=== PATIENT | male | born 1960 | race Caucasian/White ===

== ENCOUNTER 2025-09-17 10:50 | Outpatient (AMB) | payer MEDICARE, SELFPAY ==
--- NOTE | 2025-09-17 11:00 | MHC.OFFVIS ---
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 The patient did undergo cervical spine surgery by Dr. Joyner approximately 5 years ago. He reports minimal discomfort in his neck. The patient was recently seen by [facility] for treatment of his chronic low back pain. He got minimal relief from the treatments. He has failed the last 6 weeks of conservative treatment which has included Tylenol, physical therapy exercises and a home exercise program. He is not able to take anti-inflammatory medicines because he is on Eliquis. The patient states that he has fallen several times because of weakness in both of his legs. He describes his knee pains as achy in nature. He did undergo right knee arthroscopic surgery approximately 20 years ago. Medication List - Last Reconciled 09/17/25 by Salomón Morales MD amlodipine 10 mg PO DAILY apixaban (Eliquis) 5 mg PO BID blood sugar diagnostic (FreeStyle Lite Strips) As directed blood-glucose meter (FreeStyle Lite Meter kit) As directed lancets (FreeStyle Lancets) As directed metformin 500 mg PO BID metoprolol succinate ER 50 mg PO DAILY metronidazole 0.75% topical DAILY PFSH Social History (Updated 09/17/25 @ 11:17 by JUAN Torres) Alcohol intake: current Patient Tobacco Use Status: Former Tobacco user Physical Exam Vital Signs: BMI result Body Mass Index 28.7 Const Other: Well-nourished well-developed very friendly male awake alert and oriented x3 in no acute distress Back/Spine/Pelvis Other: Low back examination shows bilateral paraspinal muscle tenderness, positive straight leg raise test bilaterally at 70 degrees, 4/5 strength with testing of his bilateral hip flexors and knee extensors Extrem Other: Bilateral knee examination shows minimal effusions, mild crepitus with range of motion, tenderness along his medial joint lines, positive Ernesto's test, no instability Results Reviewed Results Reviewed: X-rays of the patient's bilateral knee show mild to moderate diffuse joint space narrowing, no acute bony abnormalities Assessment & Plan Assessment & Plan (1) Low back pain radiating to both legs: Code(s): M54.50 - Low back pain, unspecified; M79.604 - Pain in right leg; M79.605 - Pain in left leg Category: Medical Plan Mr. Figueroa presents with progressively worsening low back pain which radiates into both of his legs as well as associated bilateral leg weakness possibly due to lumbar stenosis or a disc herniation. Thus, I will send the patient for an MRI of his lumbar spine for further evaluation. I will contact him by phone once the MRI results are available. He will call me prior to that time should his symptoms worsen in any way. The patient also has bilateral knee pains due to early degenerative joint disease as well as possible medial meniscus tearing. At this point the patient's knee symptoms are tolerable to him. We will hold off on a cortisone injection. Feel free to call me at any time should questions regarding his orthopedic management arise. I spent 21 minutes in reviewing the patient's records and imaging studies, seeing the patient and documenting in the medical record. Orders: Orders XR Knee Ford 3V Today M25.561 - Pain in right knee, M25.562 - Pain in left knee MR lumbar spine wo con 09/18/25 M54.50 - Low back pain, unspecified, M79.604 - Pain in right leg, M79.605 - Pain in left leg Coding Level of Care Code Est Pt Level 3 (78938) Complex EM visit Add On G2211 Diagnoses Low back pain radiating to both legs M54.50; M79.604; M79.605
[2025-09-17 11:18] VITALS: BMI 28.7
--- OUTSIDE RECORDS SUMMARY | 2025-09-17 14:05 | XMS_ITS | Clinical Summary ---
Author Organization [facility] Address [address] [place] [address] Care Team Providers Care Global Commodity Manager Name Role Phone Corwin Grijalva Primary Care Provider [phone] Surgical History Surgery Date Site/Laterality Comments HERNIA REPAIR PROCEDURE:HERNIA REPAIR KNEE SURGERY PROCEDURE:KNEE SURGERY ANKLE FRACTURE SURGERY PROCEDURE:ANKLE FRACTURE SURGERY CARDIAC SURGERY PROCEDURE:CARDIAC SURGERY BACK SURGERY PROCEDURE:BACK SURGERY Medical History Medical History Date Comments Hypertension DX:Hypertension Blood clotting tendency (CMS/HCC V24) DX:Blood clotting tendency (HCC) GERD (gastroesophageal reflux disease) DX:GERD (gastroesophageal reflux disease) Family History Medical History Relation Name Comments Diabetes Brother Hypertension Brother Heart disease Father Cancer Sister Relation Name Status Comments Brother Father Sister Social History Tobacco Use Types Packs/Day Years Used Date Smoking Tobacco: Former Smokeless Tobacco: Never Alcohol Use Standard Drinks/Week Comments Yes 0 (1 standard drink = 0.6 oz pur e alcohol) Sex and Gender Information Value Date Recorded Sex Assigned at Not on file Legal Sex Male 11:40 AM EST Gender Identity Not on file Sexual Orientation Not on file Obstetrics History Last Filed Vital Signs Vital Sign Reading Time Taken Comments Blood Pressure - - Pulse - - Temperature - - Respiratory Rate - - Oxygen Saturation - - Inhaled Oxygen Concentration - - Weight 96.2 kg (212 lb) 06/30/2022 8:04 AM EDT Height 182.9 cm (6') 06/30/2022 8:04 AM EDT Body Mass Index 28.75 06/30/2022 8:04 AM EDT Plan of Treatment Health Maintenance Due Date Last Done Comments DTaP,Tdap,and Td Vaccines (1 - Tdap) 1978 Pneumococcal Vaccine: 50+ Ye ars (1 of 1 - PCV) 2009 Zoster Vaccines (1 of 2) 2009 Depression Screening 11/27/2024 COVID-19 Vaccine (2023-2 5 season) 2025 Influenza Vaccine (#1) 2025 RSV Immunization Adult Patie nts (1 - 1-dose 75+ series) 2034 HIB Vaccines Aged Out No longer eligi ble based on patient's age to complete this topic HPV Vaccines Aged Out No longer eligi ble based on patient's age to complete this topic Hepatitis A Vaccines Aged Out No long er eligible based on patient's age to complete this topic Hepatitis B Vaccines Aged Out No long er eligible based on patient's age to complete this topic IPV Vaccines Aged Out No longer eligi ble based on patient's age to complete this topic MMR Vaccines Aged Out No longer eligi ble based on patient's age to complete this topic Meningococcal ACWY Vaccine Aged Out N o longer eligible based on patient's age to complete this topic Meningococcal B Vaccine Aged Out No l onger eligible based on patient's age to complete this topic RSV Immunization Patients Un cliff 20 months Aged Out No longer eligible b ased on patient's age to complete this topic Varicella Vaccines Aged Out No longer eligible based on patient's age to complete this topic Care Teams Global Commodity Manager Relationship Specialty Start Date End Date Corwin Grijalva DO [address] [place] [address] PCP - General Family Medicine 06/22/22
--- OUTSIDE RECORDS SUMMARY | 2025-09-17 14:05 | XMS_ITS | Clinical Summary ---
Author Organization [facility] Address [address] [place] [id number] Care Team Providers Care Soft Shoe Dancer Name Role Phone Corwin Grijalva DO Primary Care Provider [phone] Allergies Active Allergy Reactions Criticality Noted Date Comments Bi Inhibitors 06/30/2022 Dicyclomine 06/30/2022 Morphine Other (See Comments) 12/10/2018 Moxifloxacin Other (See Comments) 12/10/2018 Medications Medication Sig Dispensed Refills Start Date End Date Status amLODIPine (NORVASC) tablet 10 mg 0 09/05/2018 Active Blood Glucose Calibration (OT ULTRA/FASTTK CNTRL SOLN) SOLN 0 07/11/2018 Active ONE TOUCH ULTRA TEST test strip 0 08/25/2018 Active metoprolol succinate (TOPROL-XL) 24 hr tablet 50 mg 0 09/05/2018 Active Active Problems Problem Noted Date Diagnosed Date Foot drop, left 09/18/2018 Waddling gait 09/18/2018 Muscle atrophy of lower extremity 09/18/2018 Back pain of lumbar region with sciatica 018 Family History Medical History Relation Name Comments [...] Recorded Sex Assigned at Not on file Gender Identity Not on file Sexual Orientation Not on file Job Start Date Occupation Industry Not on file Not on file Not on file Last Filed Vital Signs Vital Sign Reading [...] Health Maintenance Due Date Last Done Comments Hepatitis C Screening 1959 COVID-19 Vaccine (#1) 01/25/1960 Depression Screening 1971 BMI Counseling 1977 Preventative Health Evaluation 1977 DTap / Tdap / Td (1 - Tdap) 1978 Colon Cancer Screening (Colonoscopy) 2004 Shingrix-Zoster Vaccine (1 o f 2) 2009 Fall Risk Assessment 2024 Pneumococcal Vaccine (1 of 1 - PCV) 2024 Influenza Vaccine (#1) 2025 8, 11/15/2017 RSV Adult > 60+ Yrs or (1 - 1-dose 75+ series) 2034 Hepatitis B Vaccines Aged Out No long er eligible based on patient's age to complete this topic RSV Ped < 20 months Aged Out No longe r eligible based on patient's age to complete this topic Advance Directives For more information, please contact: [phone] Documents on File Type Date Recorded 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
--- OUTSIDE RECORDS SUMMARY | 2025-09-17 14:05 | XMS_ITS | Clinical Summary ---
Author Organization [facility] Address [address] [place] [id number] Phone Care Team Providers Care Rn Hematology Name Role Phone Unknown, Unknown Primary Care Provider Luz mariano Allergies Active Allergy Reactions Criticality Noted Date Comments Moxifloxacin 12/10/2018 Morphine 12/10/2018 Medications naproxen sodium (ALEVE) 220 MG tablet Take 220 mg by mouth daily. Active amLODIPine (NORVASC) 10 MG tablet Take 10 mg by mouth daily. Active aspirin 81 MG EC tablet Take 81 mg by mouth daily. Active metoprolol tartrate (LOPRESSOR) 50 MG tablet Take 50 mg by mouth daily. Active Social History Tobacco Use Types Packs/Day Years Used Date Smoking Tobacco: Never Smokeless Tobacco: Never Education Answer Date Recorded Are you interested in more education? Not on theo e 03/24/2023 Are you concerned about learning? Not on file 03/24/2023 No 03/24/2023 No 03/24/2023 Digital Access Answer Date Recorded No 04/22/2023 No 04/22/2023 No 04/22/2023 Reliable internet access at home? Not on file 04/22/2023 Device with a working camera? Not on file Sex and Gender Information Value Date Recorded Sex Assigned at Not on file Legal Sex Male 9:32 AM EST Gender Identity Not on file Sexual Orientation Not on file Last Filed Vital Signs Vital Sign Reading Time Taken Comments Blood Pressure 124/62 12/10/2018 10:12 AM EST Pulse 65 12/10/2018 10:12 AM EST Temperature 36.7 C (98.1 F) 12/10/2018 10:12 AM EST Respiratory Rate - - Oxygen Saturation 98% 12/10/2018 10:12 AM EST Inhaled Oxygen Concentration - - Weight 96.2 kg (212 lb) 12/10/2018 10:12 AM EST Height 182.9 cm (6') 12/10/2018 10:12 AM EST Body Mass Index 28.75 12/10/2018 10:12 AM EST Plan of Treatment Health Maintenance Due Date Last Done Comments Adult Td,Tdap Booster 1959 LIPID PANEL 1959 DEPRESSION SCREENING 1971 HEPATITIS C SCREENING 1977 COLOGUARD 2004 COLONOSCOPY 2004 COLORECTAL CANCER SCREENING 2004 FIT TEST 2004 FOBT 2004 SIGMOIDOSCOPY 2004 VIRTUAL COLONOSCOPY 2004 PNEUMOCOCCAL VACCINES (50+ y ears) (1 of 1 - PCV) 2009 ZOSTER VACCINES (1 of 2) 2009 INFLUENZA VACCINE (#1) 2025 11/15/2017 COVID-19 VACCINE (1 - 2024-2 6 season) 2025 RSV VACCINE (1 - 1-dose 75+ series) 2034 SMOKING STATUS SCREENING (On ce After 26 Yrs) Completed 12/10/2018 HEPATITIS A VACCINES Aged Out No long er eligible based on patient's age to complete this topic HIB VACCINES Aged Out No longer eligi ble based on patient's age to complete this topic MENINGOCOCCAL VACCINES (ACWY) Aged Out No longer eligible based on patient's age to complete this topic MENINGOCOCCAL VACCINES (B) Aged Out N o longer eligible based on patient's age to complete this topic Medical Devices Not on file [facility] [place] [address] [place] [address] HMO POS [place]MO [place] [address] [place] [address] HMO POS HMO POS HMO POS HMO POS [facility] [place]MO [place] [address] [place] [address] HMO POS Care Teams Rn Hematology Relationship Specialty Start Date End Date Unknown, Unknown, PCP - General 11/26/19 Additional Source Comments The information contained in this document represents components of the legal health record. It is not the complete legal health record.[facility]
--- OUTSIDE RECORDS SUMMARY | 2025-09-17 14:06 | XMS_ITS | Data Portability ---
Author Organization [facility], PAIN OFFICE Address [address] [address] Care Team Providers Care Building Engineer Name Role Phone ERKI MEJIA Primary Care Provider Assessment Encounter Date Assessment Date Assessment LastModified by Organization Details LastModified Time 11/04/2021 11/04/2021 Serafin Figueroa is a 61 year old man with right sided low back pain which is worse for the past 5 years. On exam he has positive facet loading with tenderness in L4-5 and L5-S1 facet region in the right lumbar region. X-ray Lumbar spine shows arthritic changes in the facet at L4-5 and L5-S1 levels. MRI Lumbar spine shows Lower lumbar spine degenerative disease with stenosis and underlying L5 spondylolysis. CT Lumbar spine shows bilateral pars defect at L5-S1 level without spondylolisthesis . Currently his back pain is his worse pain. Trial of Right Lumbar facet radio frequency ablation at L4-5 and L5-S1 levels under fluoroscopic guidance was recommended. The risks and benefits of the procedure were discussed in detail. He wishes to proceed. An appointment will be booked for the same . He needs a route driver salesperson on the day of the procedure. He is going to see Dr. Lemon, a neurosurgeon at [facility] . I will forward his MRI. I have advised him to avoid lifting heavy weights. [email or web address] Not available 11/04/2021 10:51:52 02/22/2022 02/22/2022 Serafin Figueroa is a 61 year old man with right sided low back pain which is worse for the past 5 years. On exam he has positive facet loading with tenderness in L4-5 and L5-S1 facet region in the right lumbar region. X-ray Lumbar spine shows arthritic changes in the facet at L4-5 and L5-S1 levels. MRI Lumbar spine shows Lower lumbar spine degenerative disease with stenosis and underlying L5 spondylolysis. CT Lumbar spine shows bilateral pars defect at L5-S1 level without spondylolisthesis . Currently his back pain is his worse pain. He is here for a Right Lumbar radiofrequency ablation of L4-5 and L5-S1 facet levels under fluoroscopic guidance . The risks and benefits of the procedure were discussed in detail. He wishes to proceed. He needs to follow up in four to six weeks. [email or web address] Not available 02/23/2022 09:09:08 03/31/2022 03/31/2022 Serafin Figueroa is a 61 year old man with right sided low back pain which is worse for the past 5 years. On exam he has positive facet loading with tenderness in L4-5 and L5-S1 facet region in the right lumbar region. X-ray Lumbar spine shows arthritic changes in the facet at L4-5 and L5-S1 levels. MRI Lumbar spine shows Lower lumbar spine degenerative disease with stenosis and underlying L5 spondylolysis. CT Lumbar spine shows bilateral pars defect at L5-S1 level without spondylolisthesis . Currently his back pain is his worse pain. He is here for a follow up after a Right Lumbar radiofrequency ablation of L4-5 and L5-S1 facet levels under fluoroscopic guidance . He reports good ongoing pain benefit. He can follow up as needed. [email or web address] Not available 03/31/2022 16:06:36 01/23/2023 01/23/2023 Serafin Figueroa is a 62 year old man with right sided low back pain which is worse for the past 5 years. On exam he has positive facet loading with tenderness in L4-5 and L5-S1 facet region in the right lumbar region. X-ray Lumbar spine shows arthritic changes in the facet at L4-5 and L5-S1 levels. MRI Lumbar spine shows Lower lumbar spine degenerative disease with stenosis and underlying L5 spondylolysis. CT Lumbar spine shows bilateral pars defect at L5-S1 level without spondylolisthesis . Currently his back pain is his worse pain. Repeat Right Lumbar facet joint steroid injection under fluoroscopic guidance was recommended. The risks and benefits of the procedure were discussed in detail. He wishes to proceed. An appointment will be booked for the same . He needs a route driver salesperson on the day of the procedure. He is on eliinstruMagicis. I have left a message for his PCP that he needs to stop eliquis three prior to the injection. If he can stop for the procedure, the PCP will fax an ok. [email or web address] Not available 01/23/2023 16:24:32 08/10/2023 08/10/2023 Serafin Figueroa is a 63 year old man with right sided low back pain which is worse for the past 5 years. On exam he has positive facet loading with tenderness in L4-5 and L5-S1 facet region in the right lumbar region. X-ray Lumbar spine shows arthritic changes in the facet at L4-5 and L5-S1 levels. MRI Lumbar spine shows Lower lumbar spine degenerative disease with stenosis and underlying L5 spondylolysis. CT Lumbar spine shows bilateral pars defect at L5-S1 level without spondylolisthesis . Currently his back pain is his worse pain. He is here for a Right Lumbar facet joint (pars ) steroid injections under fluoroscopic guidance . The risks and benefits of the procedure were discussed in detail. He wishes to proceed. He needs to follow up in four weeks. [email or web address] Not available 08/10/2023 16:12:29 Plan of Treatment Reminders Order Date Submit Date Provider Last Modified By Organization Details Last Modified Time Details Appointments None recorded. Lab None recorded. Referral neurologica l surgeon referral 2020 021 ZACHARY Lemon MD, [address] [place] [address] , [place] [address], [place], [address], 08:33:59 Procedures None recorded. Surgeries None recorded. Imaging None recorded. Medication Orders None recorded. Patient TargetsNo targets recorded. Patient Instructions Encounter Date Encounter Id Patient Instructions Last Modified By Organization Details Last Modified Time 11/04/2021 [id number] He was advised against bed rest lasting longer than four days and to continue activities as tolerated. [email or web address] Not available 11/04/2021 10:23:10 02/22/2022 [id number] He was advised against bed rest lasting longer than four days and to continue activities as tolerated. [email or web address] Not available 02/23/2022 09:08:11 03/31/2022 [id number] He was advised against bed rest lasting longer than four days and to continue activities as tolerated. [email or web address] Not available 03/31/2022 15:35:39 01/23/2023 [id number] He was advised against bed rest lasting longer than four days and to continue activities as tolerated. [email or web address] Not available 01/23/2023 16:19:49 08/10/2023 [id number] He was advised against bed rest lasting longer than four days and to continue activities as tolerated. [email or web address] Not available 08/10/2023 16:10:47 Reason for Referral Neurological Surgeon Referra l for Lumbosacral spondylosis Referring Physician: Maddie Deluna, Pain Management, Encounter Date: 11/04/2021 Problems Name Problem SNOMED Code Status Onset Date Resolution Date Notes Provider Name and Address Organization Details Recorded Time Lumbosacral spondylosis 358957625 Active Maddie lazcano MD [address] [facility] , [address], [place], [address], [place] [facility] 9 10:15:23 Degeneration of lumbar intervertebral disc 45922619 Active Maddie lazcano MD [address] [facility] , [address], [place], [address], [place] [facility] 9 15:33:41 Spinal stenosis of lumbar region 78850662 Active Maddie lazcano MD [address] , [address], [place], [address], [place] [facility] 9 15:33:51 Problem Notes None recorded. Procedures Surgical History Date Name Laterality Status Provider Name and Address Organization Details Recorded Time 08/10/20 23 Fluoroscopic Guided Lumbar Facet Steroid Injections of levels completed Maddie Deluna MD [address] , [address], [place], [address], [place] [facility] 08/10/2023 16:11:59 02/23/20 22 Radiofrequency of Lumbar/Sacral medial branches supplying the facets under fluoroscopic guidance completed Maddie Deluna MD [address] , [address], [place], [address], [place] [facility] 02/23/2022 09:07:25 09/22/20 21 Fluoroscopic Guided Lumbar Facet Steroid Injections of levels completed Maddie Deluna MD [address] , [address], [place], [address], [place] [facility] 09/23/2021 09:04:52 06/23/20 21 Fluoroscopic Guided Lumbar Facet Steroid Injections of levels completed Maddie Deluna MD [address] , [address], [place], [address], [place] [facility] 06/23/2021 10:03:14 07/14/20 20 Fluoroscopic Guided Lumbar Facet Steroid Injections of levels completed Maddie Deluna MD [address] , [address], [place], [address], [place] [facility] 07/14/2020 09:56:19 01/21/20 20 Fluoroscopic Guided Lumbar Facet Steroid Injections of levels completed Maddie Deluna MD [address] [facility] , [address], [place], [address], [place] [facility] 01/21/2020 13:38:36 07/31/20 19 Fluoroscopic Guided Lumbar Facet Steroid Injections of levels completed Maddie Deluna MD [address] [facility] , [address], [place], [address], [place] [facility] 07/31/2019 11:28:48 01/07/20 19 osteotomy and discectomy of cervical spine by anterior approach completed Maddie Deluna MD [address] [facility] , [address], [place], [address], [place] [facility] 07/19/2019 10:18:26 repair of intestine completed Maddie Deluna MD [address] [facility] , [address], [place], [address], [place] [facility] 07/19/2019 10:21:24 Imaging Results None recorded. Procedure Notes None recorded. Medical Equipment None Reported. Allergies Allergen ID Allergen Name Allergen Category Reaction Reaction Severity Criticality Documentation Date Start Date Code Code System Note Provider Name and Address Organization Details Recorded Time 16334 Avelox medicatio n respirato ry distress Not available Not available 07/19/2019 86344 6 RxNorm Maddie lazcano MD [address] [facility] , [address], [place], [address], [place] - [facility] 9 10:12:36 76531 morphine medicatio n hallucina tions Not available Not available 07/19/2019 7052 RxNorm Maddie lazcano MD [address] [facility] , [address], [facility] [place], [address], [facility] - Pain Management 9 10:12:53 Medications Name Sig Start Date Stop Date Status Note LastModified by Organization Details LastModified Time cervical collar as directed 07/14 completed Not Available Not Available Not Available metformin 500 mg tablet TAKE 1 TABLET BY MOUTH TWICE DAILY active Not Available Not Available No t Available neomycin-p olymyxin-h ydrocort 3.5 mg/mL-10,0 00 unit/mL-1 % ear solution 07/14 completed Not Available Not Available Not Available OneTouch Ultra Control solution active Not Available Not Available Not Available metoprolol succinate ER 50 mg tablet,ext ended release 24 hr TAKE 1 TABLET BY MOUTH DAILY active Not Available Not Available No t Available senna 8.6 mg tablet 07/19 completed Not Available Not Available Not Available ondansetro n HCl 4 mg tablet 09/22 completed Not Available Not Available Not Available prednisone 5 mg tablet 07/19 completed Not Available Not Available Not Available acetaminop hen 500 mg tablet 09/22 completed Not Available Not Available Not Available hyoscyamin e ER 0.375 mg tablet,ext ended release,12 hr 09/22 completed Not Available Not Available Not Available meclizine 25 mg tablet take 1 tablet by mouth three times a day for DIZZINES S active as needed Not Available Not Available Not Available baclofen 10 mg tablet active Not Available Not Available Not Available amlodipine 10 mg tablet TAKE 1 TABLET BY MOUTH DAILY active Not Available Not Available No t Available cephalexin 500 mg capsule 07/19 completed Not Available Not Available Not Available diclofenac sodium 50 mg tablet,del ayed release 09/22 completed Not Available Not Available Not Available lorazepam 1 mg tablet 09/22 completed Not Available Not Available Not Available polyethyle ne glycol 3350 17 gram/dose oral powder 01/23 completed Not Available Not Available Not Available metronidaz ole 0.75 % topical gel 09/22 completed Not Available Not Available Not Available nabumetone 500 mg tablet 11/04 completed Not Available Not Available Not Available oxycodone 5 mg tablet 07/19 completed Not Available Not Available Not Available enoxaparin 40 mg/0.4 mL subcutaneo us syringe 07/19 completed Not Available Not Available Not Available tadalafil 20 mg tablet TAKE 1 TABLET BY MOUTH ONE HOUR BEFORE RELATION S active Not Available Not Available No t Available Symax Duotab 0.125 mg and 0.25 mg (0.375 mg) tablet,ext ended release 11/04 completed Not Available Not Available Not Available Eliquis 5 mg tablet TAKE 1 TABLET BY MOUTH TWICE DAILY active Not Available Not Available No t Available OneTouch Ultra Blue Test Strip active Not Available Not Available N ot Available Flucelvax Quad (PF) 60 mcg (15 mcg x 4)/0.5 mL IM syringe 05/26 completed Not Available Not Available Not Available Vitals Date Recorded Body height Body mass index (BMI) Body weight Heart rate Oxygen saturation Oxygen saturation in Arterial blood by Pulse oximetry Pain severity - 0-10 verbal numeric rating [Score] - Reported Systolic And Diastolic Provider Name and Address Organization Details Last Updated DateTime 3 182.88 cm 28.8 kg/m2 75045.5 8 g 71 /min 97 % 97 % 8 156/87 mm[Hg] Maddie lazcano MD [address] [place] [address] , [address], [place], [address], [place] - [facility] 3 11:19:33 Date Recorded Body height Heart rate Oxygen saturation Oxygen saturation in Arterial blood by Pulse oximetry Systolic And Diastolic Provider Name and Address Organization Details Last Updated DateTime 2 182.88 cm 70 /min 97 % 97 % 166/83 mm[Hg] Ania Yip [place] - [facility] 2 13:27:29 Date Recorded Body height Heart rate Oxygen saturation Oxygen saturation in Arterial blood by Pulse oximetry Systolic And Diastolic Provider Name and Address Organization Details Last Updated DateTime 2 182.88 cm 63 /min 98 % 98 % 157/79 mm[Hg] Ania Yip [place] - [facility] 2 13:34:47 Date Recorded Body height Heart rate Oxygen saturation Oxygen saturation in Arterial blood by Pulse oximetry Systolic And Diastolic Provider Name and Address Organization Details Last Updated DateTime 3 182.88 cm 74 /min 97 % 97 % 147/75 mm[Hg] Ania Phi [place] [facility] 3 09:02:12 Date Recorded Body height Body mass index (BMI) Body weight Heart rate Oxygen saturation Oxygen saturation in Arterial blood by Pulse oximetry Systolic And Diastolic Provider Name and Address Organization Details Last Updated DateTime 1 182.88 cm 28.5 kg/m2 92883.4 g 82 /min 97 % 97 % 140/89 mm[Hg] Ania Phi [place] [facility] 1 09:52:33 Social History Question Answer Notes LastModified by [employer] Details LastModified Time Tobacco Smoking Status Former Smoker Maddie Deluna MD [facility] , [address], [place], [address] [place] [facility] 07/19/2019 10:16:25 Which Illicit Or Recreational Drugs Have You Used? None Information not available 07/19/2019 Education 12 Information n ot available 07/19/2019 Live Alone Or With Others? With Others Information not available 07/19/2019 Marital Status Informati on not available 07/19/2019 Sex: Unknown Functional Status Question Answer Note LastModified by [employer] Details LastModified Time What is your level of alcohol consumption? Occasional Information not available 07/19/2019 Are you currently employed? 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 Family History Relationship Description Onset Age of this Age Resolved Age Notes LastModified by Organization Details LastModified Time Sister Neoplasm of ovary [email or web address] Not available 06/28 10:15:54 Sister Multiple sclerosis [email or web address] Not available 06/28 10:16:10 Medical History Condition Response Pulmonary Embolism Y Hypertension Y Past Encounters Encounter ID Performer Location Encounter Start Date Encounter Closed Date Diagnosis/Indication Diagnosis SNOMED-CT Code Diagnosis ICD10 Code Diagnosis IMO Codes Diagnosis Note [id number] Maddie Deluna MD PAIN OFFICE [address] [facility] [place] [address] 07/19/2019 09:39:29 07/30/2019 15:58:19 Spinal stenosis of lumbar region 18151424 M48.061 Degenerati on of lumbar intervertebral disc 32546856 M51.36 Lumbosacra l spondylosis 762510936 M47.817 [id number] Maddie Deluna MD [facility] [address] [facility] [place] [address] 07/31/2019 10:35:57 07/31/2019 11:32:28 Spinal stenosis of lumbar region 16597389 M48.061 Degenerati on of lumbar intervertebral disc 15730246 M51.36 Lumbosacra l spondylosis 282798796 M47.817 [id number] Maddie Deluna MD PAIN OFFICE [address] [facility] [place] [address] 08/14/2019 09:56:33 08/15/2019 14:12:52 Spinal stenosis of lumbar region 42212107 M48.061 Degenerati on of lumbar intervertebral disc 67742693 M51.36 Lumbosacra l spondylosis 561058195 M47.817 [id number] Maddie Deluna MD PAIN OFFICE [address] [facility] [place] [address] 01/21/2020 11:24:10 01/21/2020 13:42:50 Spinal stenosis of lumbar region 34225648 M48.061 Degenerati on of lumbar intervertebral disc 26090900 M51.36 Lumbosacra l spondylosis 265734544 M47.817 [id number] Maddie Deluna MD [facility] [address] [facility] [place] [address] 06/08/2020 14:04:15 06/12/2020 12:01:48 Spinal stenosis of lumbar region 22211483 M48.061 Degenerati on of lumbar intervertebral disc 51064210 M51.36 Lumbosacra l spondylosis 734150592 M47.817 [id number] Maddie Deluna MD [facility] [address] [facility] [place] [address] 07/14/2020 09:27:34 07/14/2020 10:27:21 Spinal stenosis of lumbar region 95144674 M48.061 Degenerati on of lumbar intervertebral disc 26600508 M51.36 Lumbosacra l spondylosis 366002764 M47.817 [id number] Maddie Deluna MD [facility] [address] [facility] [place] [address] 05/26/2021 14:01:06 05/26/2021 14:18:55 Spinal stenosis of lumbar region 71579875 M48.061 Degenerati on of lumbar intervertebral disc 52096897 M51.36 Lumbosacra l spondylosis 486255642 M47.817 [id number] Maddie Deluna MD [facility] [address] [facility] [place] [address] 06/23/2021 09:30:16 06/23/2021 13:13:16 Spinal stenosis of lumbar region 03958704 M48.061 Degenerati on of lumbar intervertebral disc 68421184 M51.36 Lumbosacra l spondylosis 600087404 M47.817 [id number] Maddie Deluna MD [facility] [address] [facility] [place] [address] 09/22/2021 10:12:38 09/23/2021 09:12:51 Spinal stenosis of lumbar region 37522744 M48.061 Degenerati on of lumbar intervertebral disc 39928706 M51.36 Lumbosacra l spondylosis 012542226 M47.817 [id number] Maddie Deluna MD [facility] [address] [facility] [place] [address] 11/04/2021 09:44:52 11/04/2021 11:16:54 Spinal stenosis of lumbar region 93774795 M48.061 Degenerati on of lumbar intervertebral disc 69084666 M51.36 Lumbosacra l spondylosis 503573241 M47.817 [id number] Maddie Deluna MD [facility] [address] [facility] [place] [address] 02/22/2022 13:08:06 02/23/2022 09:36:17 Spinal stenosis of lumbar region 24998584 M48.061 Degenerati on of lumbar intervertebral disc 74055469 M51.36 Lumbosacra l spondylosis 575904103 M47.817 [id number] Maddie Deluna MD [facility] [address] [facility] [place] [address] 03/31/2022 13:26:28 03/31/2022 16:07:14 Spinal stenosis of lumbar region 75559319 M48.061 Degenerati on of lumbar intervertebral disc 70388393 M51.36 Lumbosacra l spondylosis 261533858 M47.817 [id number] Maddie Deluna MD PAIN OFFICE [address] [facility] [place] [address] 01/23/2023 11:04:49 01/23/2023 16:25:34 Spinal stenosis of lumbar region 34297991 M48.061 Degenerati on of lumbar intervertebral disc 32211293 M51.36 Lumbosacra l spondylosis 883015136 M47.817 [id number] Maddie Deluna MD [facility] [address] [facility] [place] [address] 08/10/2023 08:47:55 08/10/2023 16:20:00 Spinal stenosis of lumbar region 96632170 M48.061 Degenerati on of lumbar intervertebral disc 27422892 M51.36 Lumbosacra l spondylosis 681202331 M47.817 Health Concerns Section Related Observation LastModified by Organization Detai ls LastModified Time None Recorded Concern Status LastModified by Organization Details LastModified Time None Recorded Advance Directives Directive None Recorded Payers Insurance Date Sequence Insurance Name Policy Number Policy Alston Covered Member ID Alston Member ID Guarantor Name 11/07/2023 1 [place] [facility] [place] [id number] Serafin Figueroa [id number] Serafin Figueroa Notes Date Note Type Note Provider Name and Address Organization Details Recorded Time 11/04/2021 text/html He is here for a follow up after a right lumbar facet joint steroid injection under fluoroscopic guidance. He reports 90% pain benefit which is ongoing. He has been going to the gym and getting some muscle strength back. He is also lifting weights at home 125 pounds in his lower extremity. He is having some pressure sensation in his low back. The pain started about 5 years ago spontaneously. He started to have severe pain radiating into right buttock region and occasionally into right groin region. He describes the pain as a sharp stabbing pain. Pain is aggravated by standing and walking . Pain is relieved with laying down. He has no history of bladder or bowel incontinence.MRI Lumbar spine done at [facility] on 06/2021 shows Lower lumbar spine degenerative disease with stenosis and underlying L5 spondylolysis. CT Lumbar spine shows bilateral pars defect at L5-S1 level without spondylolisthesis.He is S/P Anterior cervical discectomy and fusion due to cervical cord compression and doing better. His gait is still unsteady. Maddie Deluna MD [address] [facility] [facility] , [address], [place], [address], [facility] - Pain Management 11/04/2021 15:10:03 02/22/2022 text/html He is here for a right radiofrequency ablation under fluoroscopic guidance of lumbar medial branches L4, L5 and S1 nerves. Maddie Deluna MD [address] [facility] , [address], [place], [address], [facility] - Pain Management 02/24/2022 09:30:24 03/31/2022 text/html He is here for a follow up after a right radiofrequency ablation under fluoroscopic guidance of lumbar medial branches L4, L5 and S1 nerves. He reports 70% pain benefit which is ongoing. He states he is still active. He has been doing a home exercise program. Overall he is feeling better. He has persistent old left foot drop. He has no history of bladder or bowel incontinence Maddie Deluna MD [address] [facility] , [address], [place], [address], [place] - [facility] 04/01/2022 13:33:10 01/23/2023 text/html He is here for a follow up. He is complaining of low back pain mainly right sided. He states he had good pain benefit with right lumbar facet joint injection under fluoroscopic guidance. He wants another injection. He reports he had a pulmonary embolism in 07/2022 and is on eliquis now. He has no radiating pain. He does have chronic left foot drop for which he wears a brace. He has no history of bladder or bowel incontinence. Maddie Deluna MD [address] [facility] , [address], [place], [address], [facility] Pain Management 01/23/2023 16:28:18 08/10/2023 text/html He is here for a Right facet joint injection under fluoroscopic guidance. Maddie Deluna MD [address] [facility] , [address], [place], [address], [facility] 08/10/2023 16:28:36
== END 2025-09-17 11:37 | disposition home or self-care (01) ==
LOC: HO.HOS 10:51
PROVIDERS: Visit Provider Orthopaedic Surgery
DX: M54.50 Low back pain, unspecified (principal); M79.604 Pain in right leg; M79.605 Pain in left leg
CPT/HCPCS: 99203; G2211

== ENCOUNTER → 2025-09-17 10:55 | Outpatient (BNV) | payer MEDICARE, SELFPAY | PROVIDERS: Visit Provider Radiology Diagnostic Radiology | DX: M17.0 Bilateral primary osteoarthritis of knee (principal) | CPT/HCPCS: 73562 ==

== ENCOUNTER 2025-09-17 11:18 | Outpatient (REF) | payer MEDICARE, SELFPAY ==
--- NOTE | ~2025-09-17 | XR_ITS ---
CLINICAL HISTORY: Bilateral knee pain 3 views right knee Comparison: None Findings: No fractures or dislocations. No joint effusion. There is moderate degenerative narrowing of the medial femorotibial joint space. Atherosclerotic calcified plaque is present in the distal femoral and popliteal arteries. No radiopaque foreign body. 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 3 views left knee Comparison: None Findings: No fractures or dislocations. No joint effusion. There is moderate degenerative narrowing of the medial femorotibial joint space. A healed fracture of the proximal fibula is present. No radiopaque foreign body. Arterial vascular calcification is present in the distal femoral and popliteal arteries. 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 This document has been electronically signed by: Kenneth Watson MD on 09/18/2025 17:48:51
--- OUTSIDE RECORDS SUMMARY | 2025-09-18 14:28 | XMS_ITS | Clinical Summary ---
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
--- OUTSIDE RECORDS SUMMARY | 2025-09-18 14:28 | XMS_ITS | Clinical Summary ---
Author Organization [facility] Address [address] [place] [address] Phone Care Team Providers Care Roller Coaster Operator Name Role Phone Unknown, Unknown Primary Care [...] topic Medical Devices Not on file [facility] [place] [address] [place] [address] HMO POS [place] [address] [place] [address] HMO POS HMO POS HMO POS HMO POS [facility] HMO [place] [address] [place] [address] HMO POS Care Teams Roller Coaster Operator Relationship Specialty Start Date End Date Unknown, Unknown, PCP - General 11/26/19 Additional Source Comments The information contained in this document represents components of the legal health record. It is not the complete legal health record.[facility]
--- OUTSIDE RECORDS SUMMARY | 2025-09-18 14:28 | XMS_ITS | Clinical Summary ---
Author Organization [facility] Address [address] [place] [address] Care Team Providers Care Hot Air Furnace Installer Repairer Name Role Phone Corwin Grijalva Primary Care Provider [phone] Surgical History Surgery Date Site/Laterality Comments HERNIA [...] age to complete this topic Care Teams Hot Air Furnace Installer Repairer Relationship Specialty Start Date End Date Corwin Grijalva DO [address] [place] [address] PCP - General Family Medicine 06/22/22
== END 2025-09-17 11:19 | disposition home or self-care (01) ==
LOC: HO.HOSX 11:18
PROVIDERS: Visit Provider Orthopaedic Surgery
DX: M25.862 Other specified joint disorders, left knee (principal); M25.861 Other specified joint disorders, right knee; M54.50 Low back pain, unspecified; R29.898 Other symptoms and signs involving the musculoskeletal system; Z79.01 Long term (current) use of anticoagulants
CPT/HCPCS: 73562; 99202